=== PATIENT | female | born 1985 | race Caucasian/White ===

== ENCOUNTER 2018-10-09 07:11 | Emergency (ER) | payer MEDICAID ==
[~2018-10-09] VITALS: Ht 170.2 cm; Wt 50.0 kg
[~2018-10-09 07:11] MED LIST: ASPIRIN 81M81 MG/TA2 PO; DOXYCYCLINE 10100 MG PO; LORTAB 5/500 501 TAB PO; MOTRIN 600600 MG/TAB PO; MOTRIN CHI100 MG/5 M PO; OXYCODONE H5 MG/5 ML PO; PERCOCET 325 MG1 TA2 PO; PRENATAL1 TA7 PO; PROCARDIA10 MG PO; SENOKOT S 50 MG1 TAB PO; SYNTHROID 0.0.025 MG PO; SYNTHROID0.05 MG/TA PO; TUMS500 MG; XANAX .25M0.25 MG/TA PO; [UNRECOGNIZED DRUG - OTHER]
[2018-10-09 07:21] VITALS: TEMP 98.7
[2018-10-09 08:22] LABS: COLLECTION METHOD CLEAN CATCH
[2018-10-09 08:31] LABS: MUCOUS Present /lpf; PH 5 (5-8); URINE APPEARANCE Clear; URINE BACTERIA None Seen /hpf; URINE BILIRUBIN Negative (NEGATIVE); URINE BLOOD Negative (NEGATIVE); URINE COLOR Yellow; URINE GLUCOSE 3+ (NEGATIVE); URINE KETONE Negative (NEGATIVE); URINE LEUKOCYTE ESTERASE 1+ (NEGATIVE); URINE NITRATE Negative (NEGATIVE); URINE PROTEIN(semi-quant) Negative (NEGATIVE); URINE RBC 0-2 /hpf; URINE UROBILINOGEN Negative (NEGATIVE)
[2018-10-09 08:49] LABS: ALBUMIN 4.4 gm/dL (3.5-5.0); BASO # 0.1 (0.0-0.2); BASO % 0.6 % (0.0-2.0); BILIRUBIN,TOTAL 1.1 mg/dL (0.0-1.0); CALCIUM 9.9 mg/dL (8.4-10.2); CREATININE, serum 0.46 mg/dL (0.52-1.25); EOS # 0.1 (0.0-0.7); EOS % 1.4 % (0-4.0); GRAN # 5.2 (1.4-6.5); GRAN % 59.7 % (42.2-75.2); HEMATOCRIT 39.9 % (37.0-47.0); HEMOGLOBIN 13.6 g/dl (12.5-16.0); LYMPH # 2.6 (1.2-3.4); LYMPH % 29.7 % (20.0-51.0); MEAN CELL VOLUME 91 fl (80.0-100.0); MEAN CORPUSCULAR HEMOGLOBIN 31 pg (27.0-31.0); MEAN CORPUSCULAR HGB CONC 34 g/dl (33.0-37.0); MEAN PLATELET VOLUME 10.1 fl (7.4-10.4); MONO # 0.7 (0.1-0.6); PLATELET COUNT 242 K/mm3 (130-400); RED BLOOD COUNT 4.37 M/mm3 (4.10-5.30); REDCELL DISTRIBUTION WIDTH-CV 12.3 % (11.5-14.5); TOTAL PROTEIN 7.9 gm/dL (6.4-8.2)
[2018-10-09] MEDS ORDERED: MACROBID 1100 MG/CAP PO (09:19)
[2018-10-09] MEDS ORDERED: PROMETHAZINE12.5 M5 PO (09:19)
[2018-10-09 10:09] VITALS: BP 118/72; PULSE 82
== END 2018-10-09 10:10 | disposition home or self-care (01) ==
LOC: COL.ER 07:11
PROVIDERS: Physician Assistant
DX: O26.891 Other specified pregnancy related conditions, first trimester (principal); O23.91 Unspecified genitourinary tract infection in pregnancy, first trimester; E86.0 Dehydration; R42 Dizziness and giddiness; Z3A.11 11 weeks gestation of pregnancy; Z90.89 Acquired absence of other organs; Z79.82 Long term (current) use of aspirin
CPT/HCPCS: J2405; J7030

== ENCOUNTER 2019-01-18 07:39 | Outpatient (CLI) | payer MEDICAID ==
[~2019-01-18] VITALS: Ht 170.2 cm; Wt 58.6 kg
[~2019-01-18 07:39] MED LIST changes: +MACROBID 1100 MG/CAP PO; +PROMETHAZINE12.5 M5 PO
--- NOTE | 2019-01-18 07:40 | NUR ---
Patient arrives ambulatory with complaints of left sided pain that started this morning, dizziness and "telescoping vision". Patient reports normal movement and denies vaginal bleeding or ROM. Patient states she had "some [place] Archer last night but nothing since". Patient changes into gown, EFM explained and placed. VSS. 0745- SVE by Pamela Man RN closed/thick/high. Patient repositioned WL. Assessment completed. 0810- See physician notification. 0840- IV started in . LR infusing. Lab at bedside.
[2019-01-18 07:47] VITALS: BP 112/81; PULSE 73; TEMP 98.1
[2019-01-18 08:00] VITALS: BP 112/81; PULSE 73; TEMP 98.1
[2019-01-18] MEDS ORDERED: ASPIRIN 81M81 MG/TA2 PO (08:00)
[2019-01-18] MEDS ORDERED: PRENATAL (08:01)
[2019-01-18 09:03] LABS: COLLECTION METHOD CLEAN CATCH
[2019-01-18 09:07] LABS: BASO # 0.1 (0.0-0.2); BASO % 0.6 % (0.0-2.0); EOS # 0.1 (0.0-0.7); EOS % 0.9 % (0-4.0); GRAN # 7.1 (1.4-6.5); GRAN % 65.1 % (42.2-75.2); HEMOGLOBIN 12.3 g/dl (12.5-16.0); LYMPH # 2.2 (1.2-3.4); MEAN CELL VOLUME 95 fl (80.0-100.0); MEAN CORPUSCULAR HEMOGLOBIN 32 pg (27.0-31.0); MEAN CORPUSCULAR HGB CONC 34 g/dl (33.0-37.0); MEAN PLATELET VOLUME 10.7 fl (7.4-10.4); MONO # 0.9 (0.1-0.6); PLATELET COUNT 227 K/mm3 (130-400); RED BLOOD COUNT 3.84 M/mm3 (4.10-5.30); REDCELL DISTRIBUTION WIDTH-CV 13.1 % (11.5-14.5)
[2019-01-18 09:13] LABS: PH 7 (5-8); SQUAMOUS EPITHELIAL 0-2 /hpf; URINE APPEARANCE Clear; URINE BACTERIA Rare /hpf; URINE BILIRUBIN Negative (NEGATIVE); URINE BLOOD Negative (NEGATIVE); URINE COLOR Straw; URINE GLUCOSE Negative (NEGATIVE); URINE KETONE Negative (NEGATIVE); URINE LEUKOCYTE ESTERASE Negative (NEGATIVE); URINE NITRATE Negative (NEGATIVE); URINE PROTEIN(semi-quant) Negative (NEGATIVE); URINE RBC 0-2 /hpf; URINE UROBILINOGEN Negative (NEGATIVE); URINE WBC 0-2 /hpf
[2019-01-18 09:16] LABS: HEMATOCRIT 36.3 % (37.0-47.0)
[2019-01-18 09:17] LABS: ALANINE AMINOTRANSFERASE < 6 U/L (9-52); ALBUMIN 3.4 gm/dL (3.5-5.0); ALKALINE PHOSPHATASE 302 U/L (50-136); ANION GAP 8 mmol/L (7-16); AST,SGOT 16 U/L (15-37); BILIRUBIN,TOTAL 0.7 mg/dL (0.0-1.0); BLOOD UREA NITROGEN 2 mg/dL (7-17); CALCIUM 8.5 mg/dL (8.4-10.2); CARBON DIOXIDE 22 mmol/L (22-30); CHLORIDE 108 mmol/L (98-107); CREATININE, serum 0.45 (0.52-1.25); GLUCOSE 82 mg/dL (74-106); POTASSIUM 3.9 mmol/L (3.4-5.0); SODIUM 139 mmol/L (137-145); TOTAL PROTEIN 6.6 gm/dL (6.4-8.2)
[2019-01-18 10:08] VITALS: BP 108/68; PULSE 74
--- NOTE | 2019-01-18 10:10 | NUR ---
1005- LR completed. IV dc'd. 1010- Patient given dc instructions. Reviewed labor precautions, kick counts and encouraged hydration and rest. Encrouaged to call or return with any concerns. Patient denies questions and leaves ambulatory.
== END 2019-01-18 10:10 | disposition home or self-care (01) ==
LOC: LDRO 07:39
PROVIDERS: Obstetrics & Gynecology
DX: O26.892 Other specified pregnancy related conditions, second trimester (principal); R42 Dizziness and giddiness; R11.0 Nausea; R10.9 Unspecified abdominal pain; Z3A.26 26 weeks gestation of pregnancy
CPT/HCPCS: J7120

== ENCOUNTER 2019-02-04 07:13 | Outpatient (CLI) | payer MEDICAID ==
[~2019-02-04] VITALS: Ht 165.1 cm; Wt 58.2 kg
[~2019-02-04 07:13] MED LIST changes: +PRENATAL
--- NOTE | 2019-02-04 07:20 | NUR ---
Patient to LR4, changed into gown, FHR/TOCO placed and explained. Patient states that she has somewhat been ayan all week, but has noticed them more last night and this morning and has noticed them more last night/this morning and having diarrhea and nausea. Patient denies vaginal bleeding and leaking of fluid. SVE-closed/high Plan of care discussed and will continue to monitor.
[2019-02-04 08:00] VITALS: BP 120/83; PULSE 92; TEMP 98.1
--- NOTE | 2019-02-04 08:10 | NUR ---
Patient offered immodium per Dr. Ma, patient refuses. Dr. Ma updated and views [facility] strip at this time, states she can go home.
[2019-02-04 08:21] VITALS: BP 103/66; PULSE 77
== END 2019-02-04 08:30 ==
LOC: LDRO 07:13
DX: O62.9 Abnormality of forces of labor, unspecified (principal); Z3A.28 28 weeks gestation of pregnancy

== ENCOUNTER 2019-02-13 16:46 | Outpatient (CLI) | payer MEDICAID ==
[~2019-02-13] VITALS: Ht 170.2 cm; Wt 59.1 kg
--- NOTE | 2019-02-13 16:45 | NUR ---
1645- Pt arrives on unit ambulatory, sent over from the office, orders received from MD prior to arrival. Pt escorted to room, changes into gown, provides urine sample. 1646- Pt into bed, EFM and TOCO off. Pt states she has a history of a 29week demise and is very anxious and nervous. Plan of care explained, Pt denies questions. Assessment completed. IV stated, labs obtained, Fluid bolus initiated. Call light within reach.
[2019-02-13 16:50] VITALS: BP 117/72; PULSE 73; TEMP 98.5
[2019-02-13 17:22] LABS: COLLECTION METHOD CLEAN CATCH
[2019-02-13 17:24] LABS: HEMATOCRIT 40.4 % (37.0-47.0); HEMOGLOBIN 13.5 g/dl (12.5-16.0); MEAN CELL VOLUME 95 fl (80.0-100.0); MEAN CORPUSCULAR HEMOGLOBIN 32 pg (27.0-31.0); MEAN CORPUSCULAR HGB CONC 33 g/dl (33.0-37.0); MEAN PLATELET VOLUME 11.1 fl (7.4-10.4); PLATELET COUNT 213 K/mm3 (130-400); RED BLOOD COUNT 4.24 M/mm3 (4.10-5.30); REDCELL DISTRIBUTION WIDTH-CV 12.7 % (11.5-14.5)
[2019-02-13 17:30] VITALS: BP 117/71; PULSE 79
[2019-02-13 17:37] LABS: ALANINE AMINOTRANSFERASE < 6 U/L (9-52); ALBUMIN 3.7 gm/dL (3.5-5.0); ALKALINE PHOSPHATASE 545 U/L (50-136); ANION GAP 12 mmol/L (7-16); AST,SGOT 23 U/L (15-37); BILIRUBIN,TOTAL 0.8 mg/dL (0.0-1.0); BLOOD UREA NITROGEN 4 mg/dL (7-17); CALCIUM 9.7 mg/dL (8.4-10.2); CARBON DIOXIDE 18 mmol/L (22-30); CHLORIDE 105 mmol/L (98-107); CREATININE, serum 0.46 (0.52-1.25); GLUCOSE 117 mg/dL (74-106); SODIUM 135 mmol/L (137-145); TOTAL PROTEIN 7.2 gm/dL (6.4-8.2)
[2019-02-13 17:39] LABS: PH 7 (5-8); SQUAMOUS EPITHELIAL 0-2 /hpf; URINE APPEARANCE Hazy; URINE BACTERIA Rare /hpf; URINE BILIRUBIN Negative (NEGATIVE); URINE BLOOD Negative (NEGATIVE); URINE COLOR Straw; URINE GLUCOSE Negative (NEGATIVE); URINE KETONE Trace (NEGATIVE); URINE LEUKOCYTE ESTERASE Trace (NEGATIVE); URINE NITRATE Negative (NEGATIVE); URINE PROTEIN(semi-quant) Negative (NEGATIVE); URINE RBC 0-2 /hpf; URINE UROBILINOGEN Negative (NEGATIVE); URINE WBC 0-2 /hpf
[2019-02-13 18:00] VITALS: BP 128/70; PULSE 118
[2019-02-13 18:00] LABS: BAND 4 % (0-10); LYMPHOCYTE 11 % (20.0-51.0); METAMYELOCYTE 1 % (0-0); NEUTROPHILS 80 % (42.0-75.2); PLATELET ESTIMATE NORMAL (NORMAL)
--- NOTE | 2019-02-13 18:00 | NUR ---
1855- Dr Branch at bedside. Discusses labs and BPs. 1800- SVE, closed. Discusses plan: Discharge home after finishing bag of fluids. Pt to not return to work through remainder of , will write note for employer. Pt is seeing MFM on Monday. Need to call and make follow-up appointment for Monday. Pt verbalizes understanding.
[2019-02-13 18:22] VITALS: BP 127/65; PULSE 121
--- NOTE | 2019-02-13 18:22 | NUR ---
1815- Discharge instructions given and explained. Questions answered. Note from Dr Branch given for discontinuation of work. 1820- IV fluids complete. IV out without difficulty. 182- EFM and TOCO off. Pt up to change into street clothes. 1830- Pt ambulates off unit in stable condition.
== END 2019-02-13 18:25 | disposition home or self-care (01) ==
LOC: LDRO 16:46 → LDR 16:50 → LDRO 18:25
PROVIDERS: Obstetrics & Gynecology
DX: O99.413 Diseases of the circulatory system complicating pregnancy, third trimester (principal); R03.0 Elevated blood-pressure reading, without diagnosis of hypertension; Z3A.29 29 weeks gestation of pregnancy
CPT/HCPCS: OP; J3105; J7120

== ENCOUNTER 2019-03-09 12:05 | Outpatient (CLI) | payer MEDICAID ==
[~2019-03-09] VITALS: Ht 170.2 cm; Wt 60.9 kg
--- NOTE | 2019-03-09 12:10 | NUR ---
Patient ambulatory to LR3, changed into gown, and FHR/TOCO monitors placed. Patient states she felt some leaking and has felt very moist. Denies any regular contractions or vaginal bleeding. SVE-closed/thick/high and amniotest negative, yellow discharge noted on glove. Plan of care discussed and Dr. Gonsalves called and notified.
[2019-03-09 12:30] VITALS: BP 118/74; PULSE 73
[2019-03-09 12:58] VITALS: BP 111/77; PULSE 75; TEMP 97.6
--- NOTE | 2019-03-09 13:00 | NUR ---
Patient given discharge instructions and understands/agree and signs papers. 1305: Patient ambulatory to off unit. 1310: on unit and reviews FHR strip and states he was okay with it.
== END 2019-03-09 13:05 | disposition home or self-care (01) ==
LOC: LDRO 12:05 → LDR 12:10 → LDRO 13:05 → LDR 13:05
DX: Z34.90 Encounter for supervision of normal pregnancy, unspecified, unspecified trimester (principal); Z3A.00 Weeks of gestation of pregnancy not specified
CPT/HCPCS: OP

== ENCOUNTER 2019-03-23 15:52 | Outpatient (CLI) | payer MEDICAID ==
[~2019-03-23] VITALS: Ht 167.6 cm; Wt 61.8 kg
--- NOTE | 2019-03-23 16:00 | NUR ---
Pt arrives on unit ambulatory with [id number]. States decreased movement. Pt felt fetus move this am, but after lunch at 1230 has not felt movement since. EFM and toco applied. FHR obtained. BP elevated. Admission assessment completed. Serial BP lower. Dr. Ma notified. FHR reactive. SVE /-2. Orders for discharge. See physician notification. 1635-Pt taken off monitors. Discharge instructions given. No questions or concerns at this time. Will follow up as scheduled 03/25/19. Leaves unit ambulatory.
[2019-03-23 16:31] VITALS: BP 142/79; PULSE 88; TEMP 97.8
== END 2019-03-23 16:36 ==
LOC: LDRO 15:52 → LDR 16:00 → LDRO 16:35 → LDR 03-25 09:11
DX: O36.8130 Decreased fetal movements, third trimester, not applicable or unspecified (principal); Z3A.35 35 weeks gestation of pregnancy
CPT/HCPCS: OP

== ENCOUNTER 2019-03-26 15:12 | Inpatient (IN) | payer MEDICAID ==
[2019-03-26] VITALS (24 sets, daily range): BP systolic 112–146; BP diastolic 52–93; PULSE 72–93; TEMP 97.6–98.6
[~2019-03-26] VITALS: Ht 167.6 cm; Wt 61.8 kg
--- NOTE | 2019-03-26 15:15 | NUR ---
Pt arrives on unit ambulatory for repeat c/s. Changed into clean gown. EFM and toco applied. BP elevated. IV started in LW. Labs drawn. LR infusing. Admission assessment completed. Denies regular ctx, vaginal bleeding, LOF and reports GFM. Consents signed. Pt updated on POC. Safety reviewed. No questions or concerns at this time. Bed locked in low position. Call light within reach.
[2019-03-26 15:41] LABS: HEMATOCRIT 40.2 % (37.0-47.0); HEMOGLOBIN 13.5 g/dl (12.5-16.0); MEAN CELL VOLUME 93 fl (80.0-100.0); MEAN CORPUSCULAR HEMOGLOBIN 31 pg (27.0-31.0); MEAN CORPUSCULAR HGB CONC 34 g/dl (33.0-37.0); MEAN PLATELET VOLUME 11.3 fl (7.4-10.4); PLATELET COUNT 166 K/mm3 (130-400); RED BLOOD COUNT 4.33 M/mm3 (4.10-5.30); REDCELL DISTRIBUTION WIDTH-CV 12.5 % (11.5-14.5)
[2019-03-26 15:55] LABS: ALANINE AMINOTRANSFERASE < 6 U/L (9-52); ALBUMIN 3.6 gm/dL (3.5-5.0); ALKALINE PHOSPHATASE 764 U/L (50-136); ANION GAP 10 mmol/L (7-16); AST,SGOT 17 U/L (15-37); BILIRUBIN,TOTAL 0.6 mg/dL (0.0-1.0); BLOOD UREA NITROGEN 7 mg/dL (7-17); CALCIUM 9.5 mg/dL (8.4-10.2); CARBON DIOXIDE 22 mmol/L (22-30); CHLORIDE 105 mmol/L (98-107); CREATININE, serum 0.54 (0.52-1.25); GLUCOSE 91 mg/dL (74-106); POTASSIUM 4.2 mmol/L (3.4-5.0); SODIUM 137 mmol/L (137-145); TOTAL PROTEIN 6.9 gm/dL (6.4-8.2)
[2019-03-26 16:13] LABS: BAND 1 % (0-10); EOSINOPHIL 1 % (0-4); LYMPHOCYTE 18 % (20.0-51.0); METAMYELOCYTE 5 % (0-0); MYELOCYTE 2 % (0-0); NEUTROPHILS 57 % (42.0-75.2); PLATELET ESTIMATE NORMAL (NORMAL)
[2019-03-27] VITALS (25 sets, daily range): BP systolic 113–134; BP diastolic 60–90; PULSE 77–103; TEMP 97.8–98.5
[2019-03-27 07:55] LABS: PATHOLOGY DIFF REVIEW OK
[2019-03-27 08:11] LABS: HEMOGLOBIN 12.3 g/dl (12.5-16.0); MEAN CELL VOLUME 92 fl (80.0-100.0); MEAN CORPUSCULAR HEMOGLOBIN 32 pg (27.0-31.0); MEAN CORPUSCULAR HGB CONC 34 g/dl (33.0-37.0); PLATELET COUNT 171 K/mm3 (130-400); RED BLOOD COUNT 3.91 M/mm3 (4.10-5.30); REDCELL DISTRIBUTION WIDTH-CV 12.7 % (11.5-14.5)
[2019-03-27 08:13] LABS: HEMATOCRIT 35.9 % (37.0-47.0)
[2019-03-27 08:20] LABS: ALBUMIN 3.1 gm/dL (3.5-5.0); BILIRUBIN,TOTAL 0.5 mg/dL (0.0-1.0); CALCIUM 6.6 mg/dL (8.4-10.2); CREATININE, serum 0.48 (0.52-1.25); TOTAL PROTEIN 6.1 gm/dL (6.4-8.2)
[2019-03-27 08:42] LABS: LYMPHOCYTE 12 % (20.0-51.0); MYELOCYTE 6 % (0-0); NEUTROPHILS 74 % (42.0-75.2); PLATELET ESTIMATE NORMAL (NORMAL)
--- NOTE | 2019-03-27 09:00 | NUR ---
0900- in room. Reviews plan of care with patient. Orders to d/c Magnesium and LR and INT IV site and d/c one of the two IV sites. Orders to transfer to floor.
[2019-03-27] MEDS ORDERED: SYNTHROID0.075 MG/T PO (09:20)
[2019-03-28 08:32] VITALS: BP 104/66; PULSE 69; TEMP 98.6
[2019-03-28] MEDS ORDERED: PERCOCET 325 MG1 TA2 PO (08:44)
[2019-03-28] MEDS ORDERED: IBU600 MG PO (08:44)
--- NOTE | 2019-03-28 09:19 | NUR ---
Initial visit attempt; Consult in Progress, Technical Aide left card of congratulations for the of their son and information regarding the availability of spiritual care at [facility].
[2019-03-28 11:25] VITALS: BP 122/82; PULSE 79
[2019-03-28 16:05] VITALS: BP 120/75; PULSE 71; TEMP 98.6
[2019-03-28 20:45] VITALS: BP 125/85; PULSE 73; TEMP 98.3
[2019-03-29 01:15] VITALS: BP 119/72; PULSE 61; TEMP 98.2
[2019-03-29 04:30] VITALS: BP 117/74; BP 128/74; PULSE 61; PULSE 68; TEMP 98.2; TEMP 98.5
[2019-03-29 07:22] VITALS: BP 127/77; PULSE 87; TEMP 97.6
== END 2019-03-29 12:00 | disposition home or self-care (01) | DRG 788 ==
LOC: OB 15:12
PROVIDERS: ADMIT Obstetrics & Gynecology
PROC: 10D00Z1 Extraction of Products of Conception, Low, Open Approach (ICD-10-PCS; principal; 2019-03-26)
DX: O14.13 Severe pre-eclampsia, third trimester (principal); O34.211 Maternal care for low transverse scar from previous cesarean delivery; O99.344 Other mental disorders complicating childbirth; F41.9 Anxiety disorder, unspecified; O99.284 Endocrine, nutritional and metabolic diseases complicating childbirth; E03.9 Hypothyroidism, unspecified; Z3A.35 35 weeks gestation of pregnancy; Z37.0 Single live birth; Z88.0 Allergy status to penicillin
CPT/HCPCS: OP; J0690; J1885; J2370; J2405; J2590; J3475; J7120